=== PATIENT | female | born 1975 | race Caucasian/White ===

== ENCOUNTER 2019-12-03 02:08 | Inpatient (IN) | payer BC ==
[~2019-12-03] VITALS: Ht 162.6 cm; Wt 66.8 kg
[2019-12-03] MEDS ORDERED: SODIUM CHLORIDE 0.9% 1,000 ML IV ONE (02:21)
[2019-12-03] MEDS ORDERED: METO100T7 PO (02:26)
[2019-12-03] MEDS ORDERED: OMEP20CA20 PO (02:27)
[2019-12-03] MEDS ORDERED: ALPR0.5T PO (02:27)
[2019-12-03] MEDS ORDERED: SERT-237 PO (02:28)
[2019-12-03] MEDS ORDERED: TRAZ150T62 PO (02:29)
[2019-12-03] MEDS ORDERED: SODIUM CHLORIDE FLUSH 10ML SYR IVF ONE (02:30)
--- NOTE | 2019-12-03 02:30 | NUR ---
PATIENT BIB EMS FLIGHT. PT WENT TO [facility] W/ CO DIZZINESS, BILAT FACIAL NUMBNESS, HEART RACING, HEADACHE, AND MEMORY PROBLEMS. PATIENT GIVEN 500 ML NS BOLUS, 2MG ATIVAN, AND 325 ASPRIN AT 2044 WHILE THERE. [facility] UNSURE WHAT IS GOING ON, SO SHE WAS SENT HERE. PATIENT DROWSY, HAS SLIGHTLY SLURRED SPEECH, TONGUE MIDLINE, AND IS ABLE TO ANSWER ALL QUESTIONS. ERP SAW PATIENT, PATIENT PLACED ON ALL MONITORS
--- NOTE | 2019-12-03 02:43 | NUR ---
preceptor RN/Break RN: pt resting on gurney in position of comfort texting on cell phone. no family at bedside. IV infusing. pt is bradycardic, but denies CP or SOB. pt to be admitted
--- NOTE | 2019-12-03 02:50 | NUR ---
preceptor RN/Break RN: lab at bedside to draw, EKG at bedside
[2019-12-03 03:04] LABS: BASOPHILS # (AUTO) 0.03 x10^3/uL (0-0.1); BASOPHILS % (AUTO) 1 % (0-1); EOSINOPHILS # (AUTO) 0.13 x10^3/uL (0-0.4); EOSINOPHILS % (AUTO) 2 % (1-7); LYMPHOCYTES # (AUTO) 2.51 x10^3/uL (1-3.4); LYMPHOCYTES % (AUTO) 34 % (22-44); MD NO; MEAN CORPUSCULAR HEMOGLOBIN 31.2 pg (27.0-34.8); MEAN CORPUSCULAR HGB CONC 32.9 g/dL (32.4-35.8); MEAN CORPUSCULAR VOLUME 95.1 fL (80-100); MEAN PLATELET VOLUME 7.6 fL (7.4-10.4); MONOCYTES # (AUTO) 0.41 x10^3/uL (0.2-0.8); MONOCYTES % (AUTO) 6 % (2-9); NEUTROPHILS % (AUTO) 59 % (42-75); PLATELET COUNT 292 x10^3/uL (130-400); RED BLOOD COUNT 4.38 x10^6/uL (3.82-5.3); RED CELL DISTRIBUTION WIDTH 12.8 % (9.6-15.2)
--- NOTE | 2019-12-03 03:05 | NUR ---
preceptor RN/Break RN: bed assignment recieved, attempting to call report
[2019-12-03 03:10] LABS: INTERNATIONAL NORMALIZED RATIO 1.04 (0.93-1.1); PROTHROMBIN TIME 10.7 Seconds (9.6-11.5)
[2019-12-03 03:11] LABS: ALBUMIN 3.2 g/dL (3.4-5.0); ANION GAP 6 mmol/L (5-15); CALCIUM 8.5 mg/dL (8.5-10.1); CHLORIDE 114 mmol/L (98-107); CREATININE 0.94 mg/dL (0.55-1.02)
[2019-12-03 03:15] LABS: TROPONIN I < 0.015 ng/mL (0.000-0.045)
[2019-12-03 03:56] VITALS: BP 124/79
[2019-12-03] MEDS ORDERED: OMEPRAZOLE 20 MG CAPSULE.DR PO PRN (04:00)
[2019-12-03] MEDS ORDERED: ONDANSETRON 2MG/ML, 2ML IVPush PRN (04:00)
[2019-12-03 07:32] VITALS: BP 115/67
[2019-12-03 08:03] LABS: CHOL/HDL RATIO 4.1; LDL/HDL RATIO 2.6 (0.5-3.0)
[2019-12-03] MEDS ORDERED: FENTANYL PF 100 MCG/2ML ONE (08:56)
[2019-12-03] MEDS ORDERED: GADOTERATE 7.5 MMOL/15 ML VIAL ONE (08:56)
[2019-12-03] MEDS ORDERED: MIDAZOLAM 1 MG/ML, 5ML ONE (08:56)
[2019-12-03] MEDS ORDERED: FLUMAZENIL 0.1 MG/1 ML, 5ML ONE (08:57)
[2019-12-03] MEDS ORDERED: NALOXONE 1 MG/ML, 2ML ONE (08:57)
[2019-12-03] MEDS ORDERED: ASPIRIN 81 MG TABLET CHEW PO/NG SCH (09:00)
[2019-12-03] MEDS ORDERED: ATOR-2 PO (12:12)
[2019-12-03] MEDS ORDERED: ASPI-515 PO/NG (12:12)
[2019-12-03] MEDS: ACETAMINOPHEN 650 MG/20.3 ML UDC PO PRN ×2 (13:39→18:04)
[2019-12-03 14:56] VITALS: BP 100/64
[2019-12-03] MEDS ORDERED: SERTRALINE 50MG TABLET PO SCH (21:00)
[2019-12-03] MEDS ORDERED: ATORVASTATIN 80 MG TABLET PO SCH (21:00)
[2019-12-03] MEDS ORDERED: TRAZODONE 150MG TABLET PO SCH (21:00)
== END 2019-12-03 18:40 | disposition home or self-care (01) | DRG 93 ==
LOC: ED 02:40 → EDIP 02:45 → 5SO 03:33
PROVIDERS: ADMIT Family Medicine; ATTEND Family Medicine
DX: R47.01 Aphasia (principal); F32.9 Major depressive disorder, single episode, unspecified; F41.9 Anxiety disorder, unspecified; F17.200 Nicotine dependence, unspecified, uncomplicated; G43.909 Migraine, unspecified, not intractable, without status migrainosus; R00.0 Tachycardia, unspecified; R00.1 Bradycardia, unspecified; R20.0 Anesthesia of skin; R27.0 Ataxia, unspecified; R47.1 Dysarthria and anarthria; J45.20 Mild intermittent asthma, uncomplicated; K21.9 Gastro-esophageal reflux disease without esophagitis; Z80.3 Family history of malignant neoplasm of breast; Z82.3 Family history of stroke; Z90.12 Acquired absence of left breast and nipple
CPT/HCPCS: 36415; 70553; 80048; 80061; 82040; 84443; 84484; 85025; 85610; 85730; 93005; 93306; 93880; 99156; 99157; G0378; J2250; J3010; 92523-GN; J2310; J7030